=== PATIENT | female | born 1950 ===

== ENCOUNTER → 2018-08-30 | Outpatient (CLI) | payer OTHER | LOC: FIMAGING 13:36 | PROVIDERS: ATTEND Orthopaedic Surgery | DX: Z01.818 Encounter for other preprocedural examination (principal); M17.11 Unilateral primary osteoarthritis, right knee ==

== ENCOUNTER 2018-09-15 08:12 | Observation (INO) | payer OTHER ==
--- NOTE | 2018-09-15 06:09 | PDHPUP ---
History & Physical Update H&P update statement: This history and physical update is based on an assessment of the patient which was completed after admission or registration (within 24 hours), but prior to the surgery/procedure. H&P update: no change in patient's condition since H&P completed
--- NOTE | 2018-09-15 06:10 | PDIAF ---
- Diagnosis Diagnosis: right knee djd Code Status: Full Code - Medication Management Discharge Medications: electronically signed and located in the Home Medication List. - Orders Services needed: Home Care, Physical Therapy Home Care Face to Face: I certify that this patient was under my care and that I had the required [id number]-[id number] encounter meeting the encounter requirements on the discharge day. My findings support the fact that the patient is homebound as defined in Home Care Face to Face Continued: CMS Chapter 7 Medicare Benefits Manual 30.1.1 , The condition of the patient is such that there exists a normal inability to leave home and consequently, leaving home would require a considerable and taxing effort. Diet Recommendation: no restrictions on diet Diet Texture: Regular Texture Diet Additional Instructions: TOTAL JOINT ARTHROPLASTY DISCHARGE INSTRUCTIONS 1. Your surgeon follows the [facility] protocol for reducing your risk of DVT (blood clots) following surgery. Medication will be ordered to prevent blood clots. A sudden increase in calf pain and/or swelling could indicate a blood clot in your leg. If this occurs, please call your surgeon or his/her speech assistant. An ultrasound of the leg may be necessary to diagnose a blood clot. If you have conditions that make you a higher risk for blood clots, your surgeon may use more aggressive ways to prevent them. Notify your surgeon if you think you are a high risk for blood clots. 2. Wear your white surgical stockings (MAY hose) for 2 weeks. This decreases your swelling and may help prevent blood clots. It is ok to remove MAY hose at night time to give your legs a break. 3. Swelling and bruising in the surgical leg is common. If you feel that it is excessive, please notify your surgeon. 4. Elevate your surgical leg with the ankle above the hip several times every day. Please keep the leg straight when you elevate by putting pillows under your foot. Do not put pillows under your knee. This will make being able to fully straighten more difficult. This is uncomfortable, but try to do it as much as possible. 5. For total knee replacements use compressive wrap on your knee for 3-5 days after surgery, then you can discontinue it. 6. Use a walker or crutches for 1-2 weeks. Progress your weight-bearing as tolerated. You may start to use a cane when you feel stable and safe. 7. You will receive physical therapy instructions in the hospital. Continue those exercises at home. There are additional exercises in the total joint booklet you were given before surgery. Outpatient physical therapy will begin 7- 10 days after surgery. Please schedule this in advance. 8. Use ice on your knee at least 3-5 times every day for 30 minutes. This helps reduce pain and swelling. Also use it at night before falling asleep. 9. Leave your surgical dressing in place for 2 weeks. Your dressing is water resistant, but not waterproof. Cover it with Saran Wrap or Micmp-s-Rvzq before showering. You may shower as soon as you feel safe entering a shower. If you notice bleeding from your incision 2 or 3 days after surgery, please notify your surgeon. 10. Due to narcotics, decreased activity and altered diet, most patients experience constipation after surgery. Use msre-lem-yerapep stool softeners while you are on narcotics. 11. You may drive a car when you are comfortable bearing weight, have good muscular control of your leg and are off narcotics. This usually occurs 2-4 weeks after surgery, depending on which leg was operated on. 12. If there are questions not addressed here, please refer the [facility] book given for more information. If you still have questions, please contact your surgeon s office. 13. If you have a life-threatening emergency, please call 911 and go to the emergency room immediately. For non-life threatening emergencies, please call your physicians office for advice before going to the emergency room. - Follow Up Care Current Providers and Referrals: Doctor Not,On Staff, [Primary Care Provider] - Tim Vivar MD [Medical Doctor] -
[2018-09-15] MEDS ORDERED: FAMOTIDINE 20 MG TAB PO ONE (09:04)
[2018-09-15] MEDS ORDERED: ACETAMINOPHEN 325 MG TAB PO ONE (09:04)
[2018-09-15] MEDS ORDERED: ceFAZolin 2 GM/DEXTROSE 100 ML IV ONE (09:04)
[2018-09-15] MEDS ORDERED: LIDOCAINE 1% 2 ML INJ ID PRN (09:05)
[2018-09-15] MEDS ORDERED: LR 1,000 ML IV ONE ×2 (09:05→09:10)
[2018-09-15] MEDS ORDERED: CALCIUM CHLORIDE 1 GM/10 ML INJ ONE (09:38)
[2018-09-15] MEDS ORDERED: THROMBIN (BOVINE) 5,000 UNIT VIAL TP ONE (09:38)
[2018-09-15] MEDS ORDERED: CEFAZOLIN 1 GM/DEXTROSE/50 ML BAG IV ONE (09:39)
--- NOTE | 2018-09-15 11:05 | PDANEPAE ---
ANE History of Present Illness knee pain ANE Past Medical History - Cardiovascular History Hx Hypertension: No Hx Arrhythmias: No Hx Chest Pain: No Hx Coronary Artery / Peripheral Vascular Disease: No Hx CHF / Valvular Disease: No Hx Palpitations: No - Pulmonary History Hx COPD: No Hx Asthma/Reactive Airway Disease: No Hx Recent Upper Respiratory Infection: No Hx Oxygen in Use at Home: No Hx Sleep Apnea: No Sleep Apnea Screening Result - Last Documented: Negative - Neurologic History Hx Cerebrovascular Accident: No Hx Seizures: No Hx Dementia: No - Endocrine History Hx Diabetes: No Obesity: no Endocrine History Comment: right thyroid is swollen- has had it checked several times, no issues - Renal History Hx Renal Disorders: No - Liver History Hx Hepatic Disorders: No - Neurological & Psychiatric Hx Hx Neurological and Psychiatric Disorders: Yes Neurological / Psychiatric History Comment: hx of anxiety and depression when mother was passing a couple years ago - Cancer History Hx Cancer: No - Congenital Disorder History Hx Congenital Disorders: No - GI History Hx Gastrointestinal Disorders: Yes Gastrointestinal History Comment: uses digestive enzymes and probiotics. regularity issues - Other Health History Other Health History: wears glasses currently. cataract surgery scheduled for 09/07/18 - Chronic Pain History Chronic Pain: Yes (right knee, back, neck, right ankle) - Surgical History Prior Surgeries: 09/07/18 left eye cataract. bilateral bunionectomies ANE Review of Systems Review of systems is: negative Review of Systems: - Exercise capacity METS (RN): 4 METS ANE Patient History - Allergies Allergies/Adverse Reactions: No Known Allergies Allergy (Verified 09/05/18 10:16) - Home Medications Home medications: home medication list seen and reviewed Home Medications: Ascorbic Acid [Vitamin C 500 mg (*)] 500 mg PO DAILY 08/29/18 [Last Taken Unknown] Herbals/Supplements -Info Only 1 ea PO DAILY 08/29/18 [Last Taken Unknown] Commerce-3 Fatty Acids [Fish Oil 1000 mg (*)] 1,000 mg PO DAILY 08/29/18 [Last Taken Unknown] - NPO status NPO Since - Liquids (Date): 09/15/18 NPO Since - Liquids (Time): 06:30 NPO Since - Solids (Date): 09/14/18 NPO Since - Solids (Time): 19:30 - Anes Hx Anes Hx: no prior problems - Smoking Hx Smoking Status: Never smoked Marijuana use: No - Alcohol Use Alcohol Use: Rarely - Family Anes Hx Family Anes Hx: none Family Hx Anesthesia Complications: none ANE Labs/Vital Signs - Vital Signs Blood Pressure: 127/84 Heart Rate: 76 Respiratory Rate: 18 O2 Sat (%): 95 Height: 170.18 cm Weight: 67.132 kg ANE Physical Exam - Airway Neck exam: FROM Mallampati Score: Class 2 Mouth exam: normal dental/mouth exam - Pulmonary Pulmonary: no respiratory distress, clear to auscultation - Cardiovascular Cardiovascular: regular rate and rhythym, no murmur, rub, or gallop - ASA Status ASA Status: I ANE Anesthesia Plan Anesthesia Plan: spinal Regional Anesthesia: single shot NB
[2018-09-15] MEDS ORDERED: MIDAZOLAM 2 MG/2 ML VIAL IVP ONE (12:02)
[2018-09-15] MEDS ORDERED: MIDAZOLAM 2 MG/2 ML VIAL ONE (12:07)
[2018-09-15] MEDS ORDERED: PROPOFOL/EMULSION 500 MG/50 ML BOTTLE IV ONE (12:17)
[2018-09-15] MEDS ORDERED: ePHEDrine SULFATE 25 MG/5 ML SYR ONE (12:45)
[2018-09-15] MEDS ORDERED: ROPIVACAINE HCL 150 MG/30 ML INJ ONE (12:45)
--- NOTE | 2018-09-15 13:07 | POSTANESTH ---
Post Anesthetic Evaluation Cardiovascular Status: Normal, Stable Respiratory Status: Normal, Stable Level of Consciousness/Mental Status: Can Participate in Eval Pain Control: Adequate, Prn Tx Ordered Nausea/Vomiting Control: Adequate, Prn Tx Ordered Complications Possibly Related to Anesthesia: None Noted
[2018-09-15] MEDS ORDERED: TRANEXAMIC ACID 1,000 MG in NS 100 ML IV ONE (13:37)
[2018-09-15] MEDS ORDERED: ROPIVACAINE 0.2% 80 MG, EPINEPHrine 0.2 MG, KETOROLAC TROMETHAMINE 30 MG, morphINE 10 M... IU ONE (13:37)
[2018-09-15] MEDS ORDERED: BISACODYL 10 MG SUPP PR PRN (13:43)
[2018-09-15] MEDS ORDERED: DIPHENOXYLATE/ATROPINE LOMOTIL 1 TAB PO PRN (13:43)
[2018-09-15] MEDS ORDERED: POLYETHYLENE GLYCOL 3350 17 GM PKT PO PRN (13:43)
[2018-09-15] MEDS ORDERED: oxyCODONE IR 5 MG TAB PO PRN (13:43)
[2018-09-15] MEDS ORDERED: TEMAZEPAM 15 MG CAP PO PRN (13:43)
[2018-09-15] MEDS ORDERED: LACTULOSE 20 GM/30 ML UDCUP PO PRN (13:43)
[2018-09-15] MEDS ORDERED: PROMETHAZINE HCL 25 MG/ML INJ IVP PRN (13:43)
[2018-09-15] MEDS ORDERED: METOCLOPRAMIDE 10 MG/2 ML VIAL IVP PRN (13:43)
[2018-09-15] MEDS ORDERED: PROMETHAZINE HCL 25 MG SUPPR PR PRN (13:43)
[2018-09-15] MEDS ORDERED: ONDANSETRON 4 MG/2 ML VIAL IVP PRN (13:43)
[2018-09-15] MEDS ORDERED: ONDANSETRON DISINTEGRATING 4 MG TAB PO PRN (13:43)
[2018-09-15] MEDS ORDERED: CYCLOBENZAPRINE 10 MG TAB PO PRN (13:43)
[2018-09-15] MEDS ORDERED: MAGNESIUM HYDROXIDE 30 ML UDCUP PO PRN (13:43)
[2018-09-15] MEDS ORDERED: diphenhydrAMINE 25 MG CAP PO PRN (13:43)
--- NOTE | 2018-09-15 13:43 | POSTOPPROG ---
Post Op Note Date of Operation: 09/15/18 Surgeon: Tim Vivar Roll Forming Machine Operator: sallie Anesthesiologist: mari Anesthesia: Spinal Pre-op Diagnosis: right knee djd Post-op Diagnosis: same Indication: same Procedure: right tka Inf/Abcess present in the surg proc area at time of surgery?: No Depth: Deep Incisional (Fascial) EBL: 100-500
[2018-09-15] MEDS ORDERED: LR 1,000 ML IV SCH (14:00)
[2018-09-15] MEDS ORDERED: TRANEXAMIC ACID 650 MG TAB PO SCH (14:00)
[2018-09-15] MEDS ORDERED: NALOXONE HCL 0.4 MG/ML INJ IVP PRN (14:04)
[2018-09-15] MEDS ORDERED: DEXAMETHASONE 4 MG/ML VIAL IVP PRN (14:04)
[2018-09-15] MEDS ORDERED: fentaNYL 100 MCG/2 ML INJ IVP PRN (14:04)
[2018-09-15] MEDS: ACETAMINOPHEN 325 MG TAB PO SCH (18:01)
[2018-09-15] MEDS: ceFAZolin 2 GM/DEXTROSE 100 ML IV SCH (20:24)
[2018-09-15] MEDS: TRANEXAMIC ACID 650 MG TAB PO SCH (20:25)
[2018-09-15] MEDS: ASPIRIN 325 MG TAB PO SCH (20:29)
[2018-09-15] MEDS: FAMOTIDINE 20 MG TAB PO SCH (20:30)
[2018-09-15] MEDS: SENNOSIDES/DOCUSATE SODIUM TAB PO SCH (20:30)
[2018-09-16] MEDS: ACETAMINOPHEN 325 MG TAB PO SCH ×2 (00:09→06:10)
[2018-09-16] MEDS: TRANEXAMIC ACID 650 MG TAB PO SCH (04:39)
[2018-09-16] MEDS: ceFAZolin 2 GM/DEXTROSE 100 ML IV SCH (04:40)
[2018-09-16 07:47] VITALS: BP 104/81
--- NOTE | 2018-09-16 07:47 | PDIAF ---
- Diagnosis Diagnosis: right knee djd Code Status: Full Code - Medication Management Discharge Medications: electronically signed and located in the Home Medication List. - Orders Services needed: Home Care, Physical Therapy Home Care Face to Face: I certify that this patient was under my care and that I had the required btxk-lh-sedb encounter meeting the encounter requirements on the discharge day. My findings support the fact that the patient is homebound as defined in Home Care Face to Face Continued: CMS Chapter 7 Medicare Benefits Manual 30.1.1 , The condition of the patient is such that there exists a normal inability to leave home and consequently, leaving home would require a considerable and taxing effort. Diet Recommendation: no restrictions on diet Diet Texture: Regular Texture Diet Additional Instructions: TOTAL JOINT ARTHROPLASTY DISCHARGE INSTRUCTIONS 1. Your surgeon follows the [facility] protocol for reducing your risk of DVT (blood clots) following surgery. Medication will be ordered to prevent blood clots. A sudden increase in calf pain and/or swelling could indicate a blood clot in your leg. If this occurs, please call your surgeon or his/her catering administrative assistant. An ultrasound of the leg may be necessary to diagnose a blood clot. If you have conditions that make you a higher risk for blood clots, your surgeon may use more aggressive ways to prevent them. Notify your surgeon if you think you are a high risk for blood clots. 2. Wear your white surgical stockings (MAY hose) for 2 weeks. This decreases your swelling and may help prevent blood clots. It is ok to remove MAY hose at night time to give your legs a break. 3. Swelling and bruising in the surgical leg is common. If you feel that it is excessive, please notify your surgeon. 4. Elevate your surgical leg with the ankle above the hip several times every day. Please keep the leg straight when you elevate by putting pillows under your foot. Do not put pillows under your knee. This will make being able to fully straighten more difficult. This is uncomfortable, but try to do it as much as possible. 5. For total knee replacements use compressive wrap on your knee for 3-5 days after surgery, then you can discontinue it. 6. Use a walker or crutches for 1-2 weeks. Progress your weight-bearing as tolerated. You may start to use a cane when you feel stable and safe. 7. You will receive physical therapy instructions in the hospital. Continue those exercises at home. There are additional exercises in the total joint booklet you were given before surgery. Outpatient physical therapy will begin 7- 10 days after surgery. Please schedule this in advance. 8. Use ice on your knee at least 3-5 times every day for 30 minutes. This helps reduce pain and swelling. Also use it at night before falling asleep. 9. Leave your surgical dressing in place for 2 weeks. Your dressing is water resistant, but not waterproof. Cover it with Saran Wrap or Erbbv-c-Sasw before showering. You may shower as soon as you feel safe entering a shower. If you notice bleeding from your incision 2 or 3 days after surgery, please notify your surgeon. 10. Due to narcotics, decreased activity and altered diet, most patients experience constipation after surgery. Use utgj-aha-bqzocxb stool softeners while you are on narcotics. 11. You may drive a car when you are comfortable bearing weight, have good muscular control of your leg and are off narcotics. This usually occurs 2-4 weeks after surgery, depending on which leg was operated on. 12. If there are questions not addressed here, please refer the [facility] book given for more information. If you still have questions, please contact your surgeon s office. 13. If you have a life-threatening emergency, please call 911 and go to the emergency room immediately. For non-life threatening emergencies, please call your physicians office for advice before going to the emergency room. - Follow Up Care Current Providers and Referrals: Doctor Not,On Staff, [Primary Care Provider] - Tim Vivar MD [Medical Doctor] -
--- NOTE | 2018-09-16 07:53 | SOAPPROG ---
SOAP Progress Note Assessment/Plan: Assessment: s/p tka Plan: dvt precautions d/c home pain control 09/16/18 07:47 Subjective: no pain no cp or sob alex po Objective: Vital Signs Temp Pulse Resp BP Pulse Ox 36.4 C 85 16 104/81 H 93 09/16/18 07:45 09/16/18 07:45 09/16/18 07:45 09/16/18 07:45 09/16/18 07:45 Laboratory Results 09/16/18 05:06 09/15/18 09/16/18 09/17/18 05:59 05:59 05:59 Intake Total 2150 Output Total 2400 Balance -250 dressing intact intact pdf, ehl toes warm and pink xrays stable alignment ICD10 Worksheet Patient Problems: Problems Problem Status Onset Arthritis of knee Acute - ICD10 Problem Qualifiers (1) Arthritis of knee
--- NOTE | 2018-09-16 08:43 | GDS ---
[f rep st] DISCHARGE SUMMARY ADMISSION DIAGNOSIS: Right knee degenerative joint disease. DISCHARGE DIAGNOSIS: Right knee degenerative joint disease. PROCEDURE: Right total knee arthroplasty. HISTORY OF PRESENT ILLNESS: The patient is a 68-year-old woman with end-stage arthritis to her right knee. She presents for elective total knee replacement. HOSPITAL COURSE: The patient was admitted overnight after an uncomplicated total knee arthroplasty. She tolerated the procedure well. At the time of discharge, she is tolerating an oral diet. Pain i s well controlled on oral medicines. She is voiding without difficulty. Dressing is clean, dry, and intact. Negative Homans bilaterally. X-rays are stable with anatomic alignment. DISCHARGE ACTIVITY: Weightbearing. Range of motion as tolerated. No soaking. May shower over the bandage. Follow up in 2 weeks. Seek attention for increasing redness, swelling, drainage, discharge or other focal comp laints. /[id number]/MODL
[2018-09-16] MEDS: ASPIRIN 325 MG TAB PO SCH (10:40)
[2018-09-16] MEDS: SENNOSIDES/DOCUSATE SODIUM TAB PO SCH (10:42)
[2018-09-16] MEDS: FAMOTIDINE 20 MG TAB PO SCH (10:43)
--- NOTE | 2018-09-16 14:43 | ASMTCMCOM ---
CM Note CM Note Notes: Pt had planned OA of knee. Pt medically stable for d/c with [facility] [phone] F:[phone], the only agency who services [place]. A referral and orders were faxed to them per Magdalena's request. Pt to d/c to [address] [place] [address] [address] [facility] [address], pt phone verified. Date Signed: 09/16/2018 02:42 PM Electronically Signed By:SUPA Muñiz
--- NOTE | 2018-09-20 11:30 | GDS ---
[f rep st] DISCHARGE SUMMARY ADMIT DIAGNOSIS: Right knee degenerative joint disease. DISCHARGE DIAGNOSIS: Right knee degenerative joint disease. NAME OF PROCEDURE: Right total knee arthroplasty. HISTORY OF PRESENT ILLNESS: The patient is a 68-year-old woman who presents for elective total knee replacement. She understands the risks, benefits, alternatives and wished to proceed. Written conse nt was signed and placed in the patient's chart. HOSPITAL COURSE: The patient was admitted overnight after uncomplicated total knee arthroplasty. Sh e tolerated the procedure well. Postoperatively, she quickly cleared physical therapy. At the time of discharge, she is tolerating an oral diet. Pain was well controlled on oral medicines. She is vo iding without difficulty. Dressing is clean, dry and intact. She has negative Homans'. DISCHARGE ACTIVITY: Range of motion and weightbearing as tolerated. Keep dressing clean, dry and in tact. Followup for increasing redness, swelling, drainage, discharge, or other focal complaints. DISCHARGE MEDICATIONS: Oxycodone 5 mg 1 to 2 every 6 hours p.r.n. pain; aspirin 325 mg p.o. daily. /[id number]/MODL
--- NOTE | 2018-09-20 12:41 | GOP ---
[f rep st] OPERATIVE REPORT DATE OF OPERATION: 09/15/2018 SURGEON: Tim Vivar MD NEUROSURGEON: Tim Vivar MD. NEWS DEPARTMENT INTERN: Jonathan Justin, [employer], [facility], ophthalmology surgical technician, who was a medical necessity for the entire ty of the case. PREOPERATIVE DIAGNOSIS: Right knee degenerative joint disease. POSTOPERATIVE DIAGNOSIS: PROCEDURE PERFORMED: Right total knee arthroplasty. FINDINGS: SPECIMENS: To Pathology, the bony cuts. INDICATIONS: The patient is a 68-year-old woman with end-stage arthritis to her right knee. Clinica l and radiographic features are consistent with this. She has failed all attempts at conservative ma nagement. She presents for elective total knee replacement. DESCRIPTION OF PROCEDURE: The patient was identified in the preanesthesia area. The right knee nicki rly demarcated as the operative site with indelible marker. She was given 2 g of Ancef intravenously in route to the operative suite. In the OR, spinal anesthetic was placed. Attention was turned to the right knee, which was sterilely prepped and draped in the usual fashion. A tourniquet had been a pplied to the upper thigh. Appropriate time-out procedure was carried out. The limb was exsanguinat ed with an Esmarch bandage and tourniquet inflated to 275 mmHg. Standard anterior midline incision w as made. Thick subcutaneous flaps were elevated followed by medial parapatellar arthrotomy. The kne e demonstrated tricompartmental arthritis. Decision was made to proceed with total knee replacement. Two pins were then placed from medial to lateral across the femur and the femoral reference array a ffixed. The tibial reference array was affixed through a percutaneous incision of the mid tibia. Al l bony landmarks were entered into the computer in standard fashion. The components were balance thr ough the flexion-extension arc with soft tissue releases and using the MAKOplasty software. Resectio ns were made for a size 4 femur, size 4 tibia. Trial reduction was carried out with trial components and a 4 x 11 mm polyethylene spacer was placed. This allowed full extension, flexion 130 degrees wi th no instability to varus or valgus stress through the flexion/extension arc. The trial components were withdrawn. The tibia and femoral components were press fit and a 4 x 11 mm polyethylene spacer was placed and confirmed to be fully seated. The patella was then everted, cut in a freehand cutting technique. Drill holes were made for a size 32 patella and a 32 mm patella was press fit into posit ion. The patella tracked centrally through the flexion/extension arc. The wound was copiously irrig ated. The capsule and tissues were injected with a joint cocktail of ropivacaine, epinephrine and To radol. The medial parapatellar arthrotomy closed using #1 Ethibond suture. The knee instilled with platelet-rich plasma. Subcutaneous tissue closed using 2-0 Monocryl. Skin stapled. A sterile dress ing was applied. The patient was awakened, extubated and taken to the recovery room in good, stable condition. DISCHARGE DIAGNOSIS: Right knee degenerative joint disease. TOTAL TOURNIQUET TIME: Fifty minutes. COMPLICATIONS: None. IMPLANTS: Freedom Triathlon posterior stabilized femoral component size 4, size 4 tibia, 4 x 11 mm p olyethylene spacer and 32 mm asymmetric patella. DISPOSITION: To the recovery room, then the floor. She is weightbearing range of motion as lanny d. /[id number]/MODL
== END 2018-09-16 12:02 | disposition home health service (06) ==
LOC: INTOOBSV 08:12 → F3N 08:12
PROVIDERS: ADMIT Orthopaedic Surgery; ATTEND Orthopaedic Surgery
DX: M17.11 Unilateral primary osteoarthritis, right knee (principal); F32.9 Major depressive disorder, single episode, unspecified; Z83.3 Family history of diabetes mellitus
CPT/HCPCS: 97161-GP; 97165-GO; 97535-GO; J0171; J0690; J1885; J2250; J2270; J2704; J2795

== ENCOUNTER → 2018-10-07 | Outpatient (CLI) | payer OTHER | LOC: BMCIMAGING 10:34 | PROVIDERS: ATTEND Podiatrist Foot & Ankle Surgery | DX: M20.11 Hallux valgus (acquired), right foot (principal); M19.071 Primary osteoarthritis, right ankle and foot ==

== ENCOUNTER → 2018-12-07 | Outpatient (CLI) | payer OTHER | LOC: BMCIMAGING 14:00 | PROVIDERS: ATTEND Orthopaedic Surgery | DX: Z09 Encounter for follow-up examination after completed treatment for conditions other than malignant neoplasm (principal); Z96.651 Presence of right artificial knee joint ==